=== PATIENT | female | born 2000 | race Two or more races ===

== ENCOUNTER 2024-06-10 21:58 | Emergency (ER) | payer MEDICAID, OTHER ==
[~2024-06-10] VITALS: Ht 167.6 cm; Wt 74.9 kg
[2024-06-10 22:05] VITALS: BP 125/78; PULSE 83; O2SAT 100
[2024-06-10] MEDS ORDERED: SULF400T11 PO (22:56)
[2024-06-10] MEDS ORDERED: BACIOIN15 OP (22:56)
[2024-06-10 23:50] VITALS: RESP 16
== END 2024-06-10 23:52 | disposition home or self-care (01) ==
LOC: ER 21:58
DX: L03.012 Cellulitis of left finger (principal)